=== PATIENT | male | born 1990 | race Hispanic/Latino ===

== ENCOUNTER → 2017-12-14 | Day surgery (SDC) | payer OTHER ==
[~2017-12-14] VITALS: Ht 182.9 cm; Wt 90.7 kg
[~2017-12-14] MED LIST: BACITRACIN 50,000 UNIT VIAL ONE; BUPIVACAINE 0.5%/EPI 30 ML SDV INJ ONE; BUPIVACAINE HCL 0.5% 10ML MPF VIAL INJ ONE; BUPIVACAINE HCL 0.5% INJ 30 ML VIAL INJ ONE; CEFAZOLIN SOD 1 GM VIAL IV ONE; CEFAZOLIN SOD 1 GM in WATER STERILE 10ML VIAL 10 ML IV SCH; DEXAMETHASONE SOD PHOS INJ 4 MG/ML VIAL ONE; DIPHENHYDRAMINE HCL INJ 50 MG/ML VIAL IV ONE; FENTANYL CITRATE/PF 100MCG/2 ML INJ ONE; HYDROCODONE/APAP 10MG-325MG TAB PO ONE; HYDROMORPHONE 1MG/1ML INJ IV ONE; HYDROMORPHONE 1MG/1ML INJ IV SCH; HYDROMORPHONE 1MG/1ML INJ IV STA; KETOROLAC TROMETHAMINE 30 MG/ML VIAL ONE; LIDOCAINE 2% /EPINEPHRINE 20 ML SDV INJ ONE; LIDOCAINE HCL 1% LOCAL INJ 20 ML VIAL INJ ONE; LIDOCAINE HCL 1% LOCAL INJ 20 ML VIAL ONE; LIDOCAINE HCL 2% LOCAL INJ 5 ML SDV VIAL INJ ONE; MIDAZOLAM HCL 2 MG/2 ML VIAL ONE; MUPIROCIN 2% OINT 22 GM TUBE ONE; ONDANSETRON HCL INJ 2 MG/ML VIAL IV STA; ONDANSETRON HCL INJ 2 MG/ML VIAL ONE; PROPOFOL IV EMULSION 10 MG/ML 20 ML VIAL ONE; SEVOFLURANE INHAL SOLN 250 ML PEN BTL ONE; SODIUM CHLORIDE 0.9% 1000ML 1,000 ML IV STA; TETANUS/DIPHTHERIA TOX ADULT 0.5 ML SYR IM ONE
--- OUTSIDE RECORDS SUMMARY | 2017-12-14 14:33 | XMS REPORT | Clinical Summary ---
Author Author [employer] Organization [employer] Address Unknown Phone Unavailable Care Team Providers Care Hoop Flaring Machine Operator Name Role Phone Agustina Ceja MD PCP Allergies No Known Allergies Current Medications Prescription Sig. Disp. Refills Start End Date Status Date naproxen (NAPROSYN) 500 TK 1 T PO Q 12 H FOR 10 0 03/30/20 Active MG tablet DAYS PRN 17 HYDROcodone-acetaminophen Take 1 tablet by mouth 40 tablet 0 04/03/20 04/08/20 (NORCO) 5-325 mg per every 4 (four) hours as 17 17 tablet needed for moderate pain for up to 5 days. Max Daily Amount: 6 tablets Active Problems Problem Noted Date Closed fracture of shaft of fourth metacarpal bone of right hand 04/03/2017 Encounters Date Type Specialty Care Team Description 04/10/2017 Transcribe Physical Therapy Marjorie Garner MD Fracture of metacarpal Orders bone (Primary Dx) 04/03/2017 [facility] General Surgery Marjorie Garner MD Closed nondisplaced Encounter fracture of shaft of fourth metacarpal bone of right hand with routine healing, subsequent encounter (Primary Dx) 04/03/2017 Anesthesia General Surgery Jenny Cisneros MD 04/03/2017 Procedure Pass General Surgery 04/03/2017 Surgery General Surgery Marjorie Garner MD OPEN REDUCTION INTERNAL FIXATION OF FOURTH METACARPAL - RIGHT SIDE 04/02/2017 Pre-Admit Pre-Admission Testing Marjorie Garner MD Preop testing (Primary Testing Dx) Appointment after 12/13/2016 Family History Medical History Relation Name Comments No Known Problems Brother Diabetes Father No Known Problems Mother No Known Problems Sister Relation Name Status Comments Brother Alive Father Alive Mother Alive Sister Alive Social History Tobacco Use Types Packs/Day Years Used Date Never Smoker Alcohol Use Drinks/Week oz/Week Comments Yes 6 Cans of 3.6 weekend beer Sex Assigned at Date Recorded Not on file Last Filed Vital Signs Vital Sign Reading Time Taken Blood Pressure 120/74 04/03/2017 11:50 AM CDT Pulse 66 04/03/2017 11:50 AM CDT Temperature 36.2 C (97.1 F) 04/03/2017 11:50 AM CDT Respiratory Rate 18 04/03/2017 11:55 AM CDT Oxygen Saturation 97% 04/03/2017 11:50 AM CDT Inhaled Oxygen - - Concentration Weight 88.5 kg (195 lb 1.6 oz) 04/03/2017 9:59 AM CDT Height 182.9 cm (6') 04/02/2017 4:00 PM CDT Body Mass Index 26.46 04/03/2017 9:59 AM CDT Plan of Treatment Health Maintenance Due Date Last Done Comments INFLUENZA VACCINE 03/31/2018 Implants Implanted Type Area Bandage Wrapping Machine Operator Device Expiration Model / Identifier Date Serial / Lot Plate Bne Lking 4h Profyle 1.7mm Orthopedic Right: SLIM [id number] / Str - [id number] Trauma Hand ORTHOPEDICS / Implanted: Qty: 1 on 04/03/2017 by Implants LOT NA Marjorie Garner MD Screw Bone Slf-Tap Gld 1.7x8mm - Orthopedic Right: SLIM [id number] Trauma Hand ORTHOPEDICS / Implanted: Qty: 4 on 04/03/2017 by Implants / Marjorie Garner MD LOT NA Procedures Procedure Name Priority Date/Time Associated Diagnosis Comments OPEN REDUCTION INTERNAL 04/03/2017 Closed fracture of FIXATION OF FOURTH 10:35 AM CDT metacarpal of right hand, METACARPAL - RIGHT SIDE initial encounter Special Needs PRE-OP VISIT ON 04-02-2017DR Maynor MORATAYA-ARM HAND PLATESWIRE DRIVERBMI: 27.1CHOIC E ANESTHESIA OK AN ELECTIVE Routine 04/03/2017 SUPRAGLOTTIC AIRWAY 10:31 AM CDT Procedure Note - Jenny Cisneros MD - 04/03/2017 10:31 AM CDT Airway Performed by: JENNY CISNEROS Authorized by: JENNY CISNEROS Location: OR Urgency: Elective Anesthesio logist: JENNY CISNEROS Performed by: anesthesio logist Preoxygena ej with 100% O2: Yes Mask Ventilatio n: Easy mask Final Airway Type: Supraglott ic airway LMA Size: 5 Number of Attempts at Approach: 1 after 12/13/2016 Results * CBC with platelet and differential (04/02/2017 4:29 PM) Component Value Ref Range WBC 6.7 4.2 - 11.0 k/uL RBC 5.33 4.04 - 5.86 m/uL HGB 15.6 13.0 - 17.3 g/dL HCT 44.9 34.0 - 45.0 % MCV 84.2 80.0 - 98.0 fL MCH 29.3 27.0 - 34.0 pg MCHC 34.7 31.5 - 36.5 g/dL RDW - SD 36.3 (L) 37.0 - 51.0 fL MPV 11.4 (H) 7.4 - 10.4 fL Platelet count 249 150 - 400 k/uL Nucleated RBC 0.00 /100 WBC Neutrophils 67.7 (H) 36.0 - 66.0 % Lymphocytes 21.7 (L) 24.0 - 44.0 % Monocytes 7.1 (H) 0.0 - 6.0 % Eosinophils 2.7 0.0 - 6.0 % Basophils 0.3 0.0 - 1.2 % Immature granulocytes 0.5 0.0 - 1.0 % Specimen Performing Laboratory [place] [facility] [place] [facility] [place] [address] [place] [address] after 12/13/2016 Insurance Payer Benefit Subscriber ID Type Phone Address Plan / Group [facility] xxxxxxxxx HMO/PPO THCARE CHOICE/CHO ICE + AETNA AETNA PPO xxxxxxxxxx PPO OPEN CHOICE
--- OUTSIDE RECORDS SUMMARY | 2017-12-14 14:36 | XMS REPORT | Clinical Summary ---
Author Author [employer] Organization [employer] Address Unknown Phone Unavailable Care Team Providers Care Fermenter Wine Name Role Phone Agustina Ceja MD PCP [...] of metacarpal Orders bone (Primary Dx) 04/03/2017 [facility] General Surgery Marjorie Garner MD Closed nondisplaced [...] INFLUENZA VACCINE 03/31/2018 Implants Implanted Type Area Block Cleaner Device Expiration Model / Identifier Date Serial / Lot Plate Bne Lking 4h Profyle 1.7mm Orthopedic Right: SLIM [id number] / Str - [id number] Trauma Hand ORTHOPEDICS / Implanted: Qty: 1 on 04/03/2017 by Implants LOT NA Marjorie Garner MD Screw Bone Slf-Tap Gld 1.7x8mm - Orthopedic Right: SLIM [id number] Trauma Hand ORTHOPEDICS / Implanted: Qty: 4 on 04/03/2017 by Implants / Marjorie Garner MD LOT NA Procedures Procedure Name Priority Date/Time Associated Diagnosis Comments OPEN REDUCTION INTERNAL 04/03/2017 Closed fracture of FIXATION OF FOURTH 10:35 AM CDT metacarpal of right hand, METACARPAL - RIGHT SIDE initial encounter Special Needs PRE-OP VISIT ON 04-02-2017DR Maynor MORATAYA-ARM HAND PLATESWIRE DRIVERBMI: 27.1CHOIC E ANESTHESIA SD AN ELECTIVE Routine 04/03/2017 SUPRAGLOTTIC AIRWAY 10:31 [...] - 1.0 % Specimen Performing Laboratory Blood [facility] [place] DEPARTMENT OF PATHOLOGY AND GENOMIC MEDICINE [address] [place] [address] after 12/13/2016 Insurance Payer Benefit Subscriber ID Type Phone Address Plan / Group [facility] xxxxxxxxx HMO/PPO THCARE CHOICE/CHO ICE + AETNA AETNA PPO xxxxxxxxxx PPO OPEN CHOICE
--- NOTE | 2017-12-14 15:17 | Diagnostic Imaging Report ---
PROCEDURE:HAND 3+ VIEWS LEFT INDICATION:Screw in left hand today COMPARISON:None. FINDINGS: L-shaped metallic density likely represents an Mahesh wrench and projects over the ulnar aspect of the hand. A portion projects outside the hand. The Mahesh wrench partially obscures some of the bones, but no definite associated fracture is identified. CONCLUSION: Foreign body appears partially outside of the hand. No definite associated fracture. Dictated by: Tony Jaffe M.D. on 12/14/2017 at 15:18 Electronically approved by: Tony Jaffe M.D. on 12/14/2017 at 15:18
[2017-12-14 16:07] LABS: BASOPHILS % 0.2 % (0.0-1.0); EOSINOPHILS # (AUTO) 0.2 (0.0-0.4); EOSINOPHILS % 2.1 % (0.0-6.0); HEMATOCRIT 41.2 % (38.2-49.6); HEMOGLOBIN 14.5 g/dL (14.0-18.0); LYMPHOCYTES # (AUTO) 0.9 (1.0-3.2); LYMPHOCYTES % 8.4 % (18.0-39.1); MEAN CORPUSCULAR HEMOGLOBIN 29.8 pg (28-32); MEAN CORPUSCULAR HGB CONC 35.2 g/dL (31-35); MEAN CORPUSCULAR VOLUME 84.8 fL (81-99); MONOCYTES # (AUTO) 0.6 (0.2-0.8); MONOCYTES % 5.8 % (4.4-11.3); NEUTROPHILS # (AUTO) 8.7 (2.1-6.9); PLATELET COUNT 193 x10e3/uL (140-360); RED BLOOD COUNT 4.86 x10e6/uL (4.3-5.7); RED CELL DISTRIBUTION WIDTH 11.9 % (11.7-14.4)
[2017-12-14 16:23] LABS: ALANINE AMINOTRANSFERASE 29 IU/L (0-55); ALBUMIN/GLOBULIN RATIO 1.2 (0.8-2.0); ALKALINE PHOSPHATASE 49 IU/L (40-150); ANION GAP 11.8 mmol/L (8-16); BLOOD UREA NITROGEN 17 mg/dL (7-26); BUN/CREATININE RATIO 20 (6-25); CALCIUM 9.2 mg/dL (8.4-10.2); CARBON DIOXIDE 27 mmol/L (22-29); CHLORIDE 99 mmol/L (98-107); CREATININE, SERUM 0.83 mg/dL (0.72-1.25); EST GLOMERULAR FILTRATION RATE > 60 ML/MIN (60-); GLUCOSE 102 mg/dL (74-118); POTASSIUM 3.8 mmol/L (3.5-5.1); SODIUM 134 mmol/L (136-145)
[2017-12-14 17:59] VITALS: BP 133/76
--- OUTSIDE RECORDS SUMMARY | 2017-12-14 18:01 | XMS REPORT ---
Author [facility] Address Unknown Phone Unavailable Care Team Providers Care Hog Grader Name Role Phone HIRAM RAYMOND Unavailable Unavailable Problems This patient has no known problems. Allergies, Adverse Reactions, Alerts This patient has no known allergies or adverse reactions. Medications This patient has no known medications. Results Test Description Test Time Test Comments Text Results Atomic Results Result Comments HAND 3+ VIEWS LEFT [place] [address] Patient Name: PHI DOYLE MR #: [id number] : 1990 Age/Sex: 27/M Req #: [id number] Adm Physician: Ordered by: MIKAEL FAITH HOST AND HOSTESS Report #: [id number] Location: ER Room/Bed: Procedure: [id number] DX/HAND 3+ VIEWS LEFT Exam Date: 12/14/17 Exam Time: 1450 REPORT STATUS: Signed PROCEDURE: HAND 3+ VIEWS LEFT INDICATION: Screw in left hand today COMPARISON: None. FINDINGS: L-shaped metallic density likely represents an Mahesh wrench and projects over the ulnar aspect of the hand. A portion projects outside the hand. The Mahesh wrench partially obscures some of the bones, but no definite associated fracture is identified. CONCLUSION: Foreign body appears partially outside of the hand. No definite associated fracture. Dictated by: Tony Garduno M.D. on 12/14/2017 at 15:18 Electronically approved by: Tony Garduno M.D. on 12/14/2017 at 15:18 Dictated By: TONY GARDUNO MD [id number] Transcribed By: MICAH on 12/14/17 1518 COPY TO: MIKAEL FAITH NP
--- OUTSIDE RECORDS SUMMARY | 2017-12-14 18:01 | XMS REPORT | Clinical Summary ---
Author Author [employer] Organization [employer] Address Unknown Phone Unavailable Care Team Providers Care Claims Supervisor Name Role Phone Agustina Ceja MD PCP [...] of metacarpal Orders bone (Primary Dx) 04/03/2017 [facility] General Surgery Marjorie Garner MD Closed [...] INFLUENZA VACCINE 03/31/2018 Implants Implanted Type Area Test Worker Device Expiration Model / Identifier Date Serial / Lot Plate Bne Lking 4h Profyle 1.7mm Orthopedic Right: SLIM [id number] / Str - [id number] Trauma Hand ORTHOPEDICS / Implanted: Qty: 1 on 04/03/2017 by Implants LOT NA Marjorie Garner MD Screw Bone Slf-Tap Gld 1.7x8mm - Orthopedic Right: SLIM [id number] Trauma Hand ORTHOPEDICS / Implanted: Qty: 4 on 04/03/2017 by Implants / Marjorie Garner MD LOT NA Procedures Procedure Name Priority Date/Time Associated Diagnosis Comments OPEN REDUCTION INTERNAL 04/03/2017 Closed fracture of FIXATION OF FOURTH 10:35 AM CDT metacarpal of right hand, METACARPAL - RIGHT SIDE initial encounter Special Needs PRE-OP VISIT ON 04-02-2017DR Maynor MORATAYA-ARM HAND PLATESWIRE DRIVERBMI: 27.1CHOIC E ANESTHESIA CA AN ELECTIVE Routine 04/03/2017 SUPRAGLOTTIC AIRWAY 10:31 [...] - 1.0 % Specimen Performing Laboratory Blood [facility] [place] DEPARTMENT OF PATHOLOGY AND GENOMIC MEDICINE [address] [place] [address] after 12/13/2016 Insurance Payer Benefit Subscriber ID Type Phone Address Plan / Group [facility] xxxxxxxxx HMO/PPO THCARE CHOICE/CHO ICE + AETNA AETNA PPO xxxxxxxxxx PPO OPEN CHOICE
--- NOTE | 2017-12-16 09:49 | Operative Report ---
DATE OF PROCEDURE: December 14, 2017 PREOPERATIVE DIAGNOSIS: Foreign body, left hand. POSTOPERATIVE DIAGNOSIS: Foreign body, left hand. PROCEDURE: Exploration of penetrating injury with retained foreign body object and removal. ANESTHESIA: General. HISTORY: The patient is a 27-year-old right hand dominant male who was assembling a swing set. He was holding a hex uqiñonez (Mahesh wrench) in his left palm and supporting the weight of the structure on it. The accident included a crushing type injury where the hex quiñonez impaled the left palm. It punctured through the soft tissues. It then punctured through the intermetacarpal space of the fourth and fifth and came to reside in the subcutaneous dorsal aspect of the hand. Patient was taken to the emergency room and urgent consultation was requested of Samir Gabriel MD, hand surgery. The risks, benefits, and alternatives of treatment are discussed with the patient and the family and they are prepared to undergo the procedures outlined. DESCRIPTION OF PROCEDURE: Patient was marked preoperatively in the holding area. He was brought to the operating theater and after the induction of adequate general anesthesia, he was prepped and draped in a supine position. A time out was performed. The C-arm fluoroscope was brought in and verification of the location and the pathway of the object were made known. At this point, the hex quiñonez was approximately 90 degrees to the longitudinal axis of the fourth and fifth metacarpals. On the dorsal aspect of the hand, the hex quiñonez was able to be turned 90 degrees so that the short limb of the quiñonez was in line with the long axis of the metacarpals. The left upper extremity was then exsanguinated and the tourniquet was inflated to a pressure of 250 mmHg. An incision was made over the short limb of the hex quiñonez on the dorsal aspect of the hand through the skin and the subcutaneous tissues. Venous tributaries were controlled with the bipolar cautery. The hex quiñonez had punctured through the intermetacarpal space and through the dorsal tendinous structures and came to reside subcutaneously. For this reason, the object was visible in the deep subcutaneous plane. Using a heavy clamp, the object was then pulled from ventral to dorsal out through the dorsal wound and then sent for permanent pathologic identification. There was a complete disruption of the tissues from the dorsal to the palmar aspect through the intermetacarpal space. The area was inspected. There was noted to be a large amount of soft tissue damage to the musculature. The wound was irrigated using an Asepto syringe with antibiotic-containing solution from dorsal to ventral and then from ventral to dorsal until all the effluent was clear. At this point, a Marcaine field block was performed at the operative site, tourniquet was deflated, all the fingers pinked up nicely, and the incisions were closed with 5-0 nylon in interrupted horizontal mattress fashion. Note should have been made preoperatively that sensory exam of the hand could not be obtained in the emergency room because the emergency room had placed an anesthetic block in the hand using 1% Xylocaine prior to the consult being obtained so no sensory exam preoperatively could have been performed. At this point, Bactroban ointment and Xeroform gauze were placed on the incisions, and the hand was placed in a sterile bulking conforming bandage. He was returned to recovery room in satisfactory condition and discharged with a postoperative instruction sheet as well as a followup appointment. Job#: [id number]
== END | disposition home or self-care (01) ==
LOC: ER 14:34 → OR 17:58
PROVIDERS: ATTEND Plastic Surgery
DX: S61.442A Puncture wound with foreign body of left hand, initial encounter (principal); W27.8XXA Contact with other nonpowered hand tool, initial encounter; Y93.89 Activity, other specified; Y99.8 Other external cause status; Y92.009 Unspecified place in unspecified non-institutional (private) residence as the place of occurrence of the external cause; Z23 Encounter for immunization; Z88.0 Allergy status to penicillin
CPT/HCPCS: 20103; 36415; 73130; 80053; 85025; 90471; 90714; 99284; J0690; J1100; J1170; J1200; J1885; J2001 ×3; J2250; J2405; J7030

== ENCOUNTER → 2020-11-21 | Outpatient (CLI) | payer BC, OTHER ==
[~2020-11-21] MED LIST changes: -BACITRACIN 50,000 UNIT VIAL ONE; -BUPIVACAINE 0.5%/EPI 30 ML SDV INJ ONE; -BUPIVACAINE HCL 0.5% 10ML MPF VIAL INJ ONE; -BUPIVACAINE HCL 0.5% INJ 30 ML VIAL INJ ONE; -CEFAZOLIN SOD 1 GM VIAL IV ONE; -CEFAZOLIN SOD 1 GM in WATER STERILE 10ML VIAL 10 ML IV SCH; +COVID-19 VACC, MRNA(MODERNA)/PF 100 MCG/0.5 ML VIAL IM ONE; -DEXAMETHASONE SOD PHOS INJ 4 MG/ML VIAL ONE; -DIPHENHYDRAMINE HCL INJ 50 MG/ML VIAL IV ONE; -FENTANYL CITRATE/PF 100MCG/2 ML INJ ONE; -HYDROCODONE/APAP 10MG-325MG TAB PO ONE; -HYDROMORPHONE 1MG/1ML INJ IV ONE; -HYDROMORPHONE 1MG/1ML INJ IV SCH; -HYDROMORPHONE 1MG/1ML INJ IV STA; -KETOROLAC TROMETHAMINE 30 MG/ML VIAL ONE; -LIDOCAINE 2% /EPINEPHRINE 20 ML SDV INJ ONE; -LIDOCAINE HCL 1% LOCAL INJ 20 ML VIAL INJ ONE; -LIDOCAINE HCL 1% LOCAL INJ 20 ML VIAL ONE; -LIDOCAINE HCL 2% LOCAL INJ 5 ML SDV VIAL INJ ONE; -MIDAZOLAM HCL 2 MG/2 ML VIAL ONE; -MUPIROCIN 2% OINT 22 GM TUBE ONE; -ONDANSETRON HCL INJ 2 MG/ML VIAL IV STA; -ONDANSETRON HCL INJ 2 MG/ML VIAL ONE; -PROPOFOL IV EMULSION 10 MG/ML 20 ML VIAL ONE; -SEVOFLURANE INHAL SOLN 250 ML PEN BTL ONE; -SODIUM CHLORIDE 0.9% 1000ML 1,000 ML IV STA; -TETANUS/DIPHTHERIA TOX ADULT 0.5 ML SYR IM ONE
== END | disposition home or self-care (01) ==
LOC: VACCPMC 08:35
DX: Z23 Encounter for immunization (principal); Z20.822 Contact with and (suspected) exposure to COVID-19
CPT/HCPCS: 91301

== ENCOUNTER → 2020-12-19 | Outpatient (CLI) | payer BC, OTHER | END | disposition home or self-care (01) | LOC: VACCPMC 08:00 | DX: Z23 Encounter for immunization (principal); Z20.822 Contact with and (suspected) exposure to COVID-19 | CPT/HCPCS: 91301 ==

== ENCOUNTER 2022-12-31 20:37 | Emergency (ER) | payer OTHER ==
[~2022-12-31] VITALS: Ht 182.9 cm; Wt 99.8 kg
[2022-12-31] MEDS ORDERED: KETOROLAC TROMETHAMINE 30 MG/ML VIAL IV STA (21:09)
[2022-12-31] MEDS ORDERED: KETOROLAC TROMETHAMINE 30 MG/ML VIAL ONE (21:52)
[2022-12-31] MEDS ORDERED: KETOROLAC TROME10 MG PO (23:33)
== END 2022-12-31 23:40 | disposition home or self-care (01) ==
LOC: FSED 21:03
DX: N50.812 Left testicular pain (principal); N50.811 Right testicular pain; R10.30 Lower abdominal pain, unspecified
CPT/HCPCS: 72192; 74176; 80053; 81003; 85025; 99283; J1885